=== PATIENT | female | born 1945 | race Caucasian/White ===

== ENCOUNTER 2017-08-14 14:24 | Inpatient (IN) | payer MEDICARE ==
[~2017-08-14] VITALS: Ht 170.2 cm; Wt 82.1 kg
[2017-08-14] MEDS ORDERED: ZOLP10TA6 PO (14:40)
[2017-08-14] MEDS ORDERED: METF10002 PO (14:40)
[2017-08-14] MEDS ORDERED: WARF10TA4 PO (14:40)
[2017-08-14] MEDS ORDERED: QUET50TA22 PO (14:42)
[2017-08-14] MEDS ORDERED: DIVA125T3 PO (14:42)
[2017-08-14] MEDS ORDERED: QUET25TA34 PO (14:42)
[2017-08-14] MEDS ORDERED: GLIP5TAB13 PO (14:44)
[2017-08-14] MEDS ORDERED: LISI2.5T2 PO (14:44)
[2017-08-14] MEDS ORDERED: DONE5TAB34 PO (14:44)
[2017-08-14] MEDS ORDERED: SERT25TA5 PO (14:45)
[2017-08-14] MEDS ORDERED: ATOR20TA PO (14:47)
[2017-08-14 15:05] LABS: *BILIRUBIN,URIN NEGATIVE (NEGATIVE); *BLOOD, URINE NEGATIVE (NEGATIVE); *CLARITY,URINE CLEAR (CLEAR); *COLOR,URINE YELLOW (YELLOW); *KETONES,URINE NEGATIVE (NEGATIVE); *PROTEIN,URINE NEGATIVE (NEGATIVE); *UROBILINOGEN,URINE 0.2 E.U./dl (NORMAL); LEUKOCYTE ESTERASE ,URINE TRACE (NEGATIVE); NITRITE, URINE NEGATIVE (NEGATIVE); PH,URINE 5.5 (5.0-8.0); UGLUCOSE NEGATIVE (NEGATIVE)
[2017-08-14 15:06] LABS: BASOPHILS % (AUTO) 0.8 % (0.0-2.0); EOSINOPHILS # (AUTO) 0.3 K/uL (0.0-0.7); EOSINOPHILS % (AUTO) 5.7 % (0.0-7.0); HEMATOCRIT 38.4 % (37-47); HEMOGLOBIN 12.7 G/DL (12.0-16.0); LYMPHOCYTES # (AUTO) 1.4 K/UL (0.8-4.8); LYMPHOCYTES % (AUTO) 26.1 % (20.5-51.5); MEAN CORPUSCULAR HEMOGLOBIN 30.4 UUG (27.0-31.0); MEAN CORPUSCULAR HGB CONC 33 g/dL (32.0-37.0); MEAN CORPUSCULAR VOLUME 92.1 FL (81.0-99.0); MONOCYTES # (AUTO) 0.5 K/UL (0.1-1.30); NEUTROPHILS # (AUTO) 3.1 K/UL (1.8-8.9); NEUTROPHILS % (AUTO) 57.4 % (38.5-71.5); PLATELET COUNT (AUTO) 206 K/UL (150-450); RED BLOOD CELL COUNT(AUTO) 4.17 MIL/UL (4.2-5.4); WHITE BLOOD COUNT (AUTO) 5.4 K/UL (4.0-11.2)
[2017-08-14 15:08] LABS: CARBON DIOXIDE 26 mmol/L (21-32); CHLORIDE 105 mmol/L (98-107); GLUCOSE 115 mg/dL (74-106); POTASSIUM 4.2 mmol/L (3.5-5.1); UREA NITROGEN, BLOOD 21 mg/dL (7-18)
[2017-08-14 15:14] LABS: SQUAMOUS EPITHELIAL CELL,UR FEW /HPF (NONE SEEN)
[2017-08-14 15:15] LABS: ALANINE AMINOTRANSFERASE 23 U/L (14-59); ALKALINE PHOSPHATASE 78 U/L (50-136); ASPARTATE AMINOTRANSFERASE 9 U/L (15-37); BILIRUBIN,DIRECT 0.1 mg/dL (0.0-0.2); BILIRUBIN,TOTAL 0.4 mg/dL (0.2-1.0); TOTAL PROTEIN, SERUM 6.9 g/dL (6.4-8.2)
[2017-08-14 15:17] LABS: ACETAMINOPHEN < 2.0 ug/mL (10-30)
--- NOTE | 2017-08-14 15:30 | NUR ---
hospital cranberry juice provided per pt ter request.
[2017-08-14 15:55] LABS: ETHANOL < 3 MG/DL (0-0)
[2017-08-14 15:57] LABS: *AMPHETAMINE, URINE NEGATIVE (NEGATIVE); *BARBITURATE, URINE NEGATIVE (NEGATIVE); *CANNABINOID, URINE NEGATIVE (NEGATIVE); *COCCAINE, URINE NEGATIVE (NEGATIVE); *OPIATE, URINE NEGATIVE (NEGATIVE); *PHENCYCLIDINE SCREEN,URINE NEGATIVE (NEGATIVE)
--- NOTE | 2017-08-14 16:01 | NUR ---
iza chaidez at bedside for psych eval.
[2017-08-14 16:30] VITALS: BP 138/79
--- NOTE | 2017-08-14 16:34 | NUR ---
pt transfered to [facility] in stable condition
--- NOTE | 2017-08-14 16:35 | NUR ---
GPS: Nursing Notes: Admission Notes: Patient is awake and responding to her name, admitted on [address] due striking out to roommates and staff, forgetful, disoriented, impaired judgment, unable to formulate a plan for self care, stated, "I am here because my mind is not working right..", depressed mood and blunted affect, flat, withdrawn in her room, came from [facility] , spoke with Farrah, network security administrator, stated that patient also did not sleep for several days and that she wanders at night, also that she has history of dementia, per Farrah, facility practice specialist stated that no pneumonia or flue vaccinations were given at the patient at her facility, JOHNATHON Ibrahim was notify that the patient is admitted to [facility].
[2017-08-14] MEDS ORDERED: ACETAMINOPHEN 325 MG TABLET PO PRN (17:00)
[2017-08-14] MEDS ORDERED: MAG HYDROX/AL HYDROX/SIMETH 30 ML LIQUID UDC PO PRN (17:00)
[2017-08-14] MEDS ORDERED: MAGNESIUM HYDROXIDE 30 ML LIQUID UDC PO PRN (17:00)
[2017-08-14] MEDS ORDERED: LORAZEPAM 0.5 MG TABLET PO PRN (17:00)
[2017-08-14] MEDS ORDERED: ZOLPIDEM 5 MG TABLET PO PRN (17:30)
[2017-08-14] MEDS: METFORMIN HCL 500 MG TABLET PO SCH (17:45)
[2017-08-14 19:50] VITALS: BP 124/74
[2017-08-14] MEDS: ATORVASTATIN 20 MG TABLET PO SCH (20:30)
[2017-08-15] MEDS: TEMAZEPAM 7.5 MG CAPSULE PO PRN ×2 (00:08→23:43)
[2017-08-15 07:10] LABS: BASOPHILS % (AUTO) 0.2 % (0.0-2.0); EOSINOPHILS # (AUTO) 0.4 K/uL (0.0-0.7); EOSINOPHILS % (AUTO) 5.9 % (0.0-7.0); HEMATOCRIT 36.6 % (37-47); HEMOGLOBIN 12.3 G/DL (12.0-16.0); LYMPHOCYTES # (AUTO) 2.2 K/UL (0.8-4.8); LYMPHOCYTES % (AUTO) 34.2 % (20.5-51.5); MEAN CORPUSCULAR HEMOGLOBIN 31.3 UUG (27.0-31.0); MEAN CORPUSCULAR HGB CONC 34 g/dL (32.0-37.0); MEAN CORPUSCULAR VOLUME 92.7 FL (81.0-99.0); MONOCYTES # (AUTO) 0.6 K/UL (0.1-1.30); MONOCYTES % (AUTO) 9.4 % (0.0-11.0); NEUTROPHILS # (AUTO) 3.1 K/UL (1.8-8.9); NEUTROPHILS % (AUTO) 50.3 % (38.5-71.5); PLATELET COUNT (AUTO) 194 K/UL (150-450); RED BLOOD CELL COUNT(AUTO) 3.95 MIL/UL (4.2-5.4); WHITE BLOOD COUNT (AUTO) 6.3 K/UL (4.0-11.2)
[2017-08-15 07:12] LABS: CARBON DIOXIDE 28 mmol/L (21-32); CHLORIDE 106 mmol/L (98-107); GLUCOSE 104 mg/dL (74-106); POTASSIUM 4.4 mmol/L (3.5-5.1); UREA NITROGEN, BLOOD 24 mg/dL (7-18)
[2017-08-15 07:30] VITALS: BP 133/72
[2017-08-15] MEDS: glipiZIDE 5 MG TABLET PO SCH (08:05)
[2017-08-15] MEDS: METFORMIN HCL 500 MG TABLET PO SCH ×2 (08:05→17:02)
[2017-08-15] MEDS: LISINOPRIL 5 MG TABLET PO SCH (08:06)
[2017-08-15] MEDS ORDERED: Medication Not On Formulary EA (Metformin Hcl 1,000 MG) PO SCH (09:00)
[2017-08-15] MEDS ORDERED: DIVALPROEX 125 MG TABLET.DR PO SCH (09:00)
[2017-08-15] MEDS ORDERED: WARFARIN SODIUM 10 MG TABLET PO SCH (09:00)
[2017-08-15 15:52] VITALS: BP 148/66
[2017-08-15] MEDS: DIVALPROEX 250 MG TABLET.DR PO SCH ×2 (16:13→20:33)
[2017-08-15] MEDS: QUETIAPINE FUMARATE 25 MG TABLET PO SCH ×2 (16:13→20:29)
[2017-08-15] MEDS: WARFARIN SODIUM 10 MG TABLET PO SCH (16:14)
[2017-08-15] MEDS: ATORVASTATIN 20 MG TABLET PO SCH (20:29)
[2017-08-15 20:36] VITALS: BP 136/71
--- NOTE | 2017-08-15 23:50 | NUR ---
PATIENT WAS NOTED UP SITTING IN A NEIL CHAIR, AWAKE AND RESTLESS. TEMAZEPAM 7.5MG PO PRN FOR INSOMNIA WAS GIVEN. WILL CONTINUE TO MONITOR.
--- NOTE | 2017-08-16 01:30 | NUR ---
PATIENT IN BED ASLEEP. TEMAZEPAM 7.5MG PO PRN FOR INSOMNIA WAS EFFECTIVE.
--- NOTE | 2017-08-16 06:54 | NUR ---
PATIENT SLEPT FOR APPROX 4 HRS THROUGH THE NIGHT. SHE WAS NOTED WITH DEPRESSED MOOD.
[2017-08-16 07:30] VITALS: BP 121/69
[2017-08-16] MEDS: METFORMIN HCL 500 MG TABLET PO SCH ×2 (07:39→17:02)
[2017-08-16] MEDS: glipiZIDE 5 MG TABLET PO SCH (07:39)
[2017-08-16] MEDS: QUETIAPINE FUMARATE 25 MG TABLET PO SCH ×3 (10:23→20:23)
[2017-08-16] MEDS: DIVALPROEX 250 MG TABLET.DR PO SCH ×3 (10:23→20:22)
[2017-08-16] MEDS: SERTRALINE HCL 50 MG TABLET PO SCH (10:24)
[2017-08-16] MEDS: LISINOPRIL 5 MG TABLET PO SCH (10:24)
[2017-08-16 15:00] VITALS: BP 132/60
[2017-08-16] MEDS: WARFARIN SODIUM 10 MG TABLET PO SCH (16:33)
[2017-08-16] MEDS ORDERED: WARFARIN SODIUM 5 MG TABLET PO ONE (17:00)
--- NOTE | 2017-08-16 17:00 | NUR ---
PATIENT MEDICATED WITH COUMADIN ORDERED WITH INR 1.65 WILL CONTINUE TO MONITOR
[2017-08-16] MEDS: ATORVASTATIN 20 MG TABLET PO SCH (20:23)
[2017-08-16 20:39] VITALS: BP 128/60
--- NOTE | 2017-08-17 06:20 | NUR ---
GPS: REMAIN CALM AND COOPERATIVE WITH MEDICATION AND CARE. SLEPT 7 HRS THROUGH THE NIGHT. SHOWERED THIS MORNING. NO BEHAVIOR PROBLEM NOTED.
[2017-08-17 07:30] VITALS: BP 127/70
[2017-08-17] MEDS: QUETIAPINE FUMARATE 25 MG TABLET PO SCH ×3 (08:04→20:05)
[2017-08-17] MEDS: SERTRALINE HCL 50 MG TABLET PO SCH (08:05)
[2017-08-17] MEDS: glipiZIDE 5 MG TABLET PO SCH (08:05)
[2017-08-17] MEDS: METFORMIN HCL 500 MG TABLET PO SCH ×2 (08:05→17:58)
[2017-08-17] MEDS: LISINOPRIL 5 MG TABLET PO SCH (08:05)
[2017-08-17] MEDS: DIVALPROEX 250 MG TABLET.DR PO SCH ×3 (08:05→20:05)
--- NOTE | 2017-08-17 08:23 | NUR ---
Initial Discharge Instructions: Pt resides at [facility] [[address] [place] [address]; [phone]] and wishes to return there upon discharge. Spoke with pt's friend/DPOA Baylee Tejeda , who would also like the pt to return to her [facility] upon discharge. Spoke with Farrah ([phone]) at the facility who is willing to accept pt back when ready for discharge. SW will speak with pt, family, and MD regarding appropriate discharge plans. SW will form a safe and proper discharge.
[2017-08-17] MEDS ORDERED: PNEUMOCOCCAL 23-VAL P-SAC VAC 0.5 ML VIAL IM ONE (13:00)
[2017-08-17] MEDS ORDERED: INFLUENZA VACCINE 2017-2018 0.5 ML DISP.SYRIN IM ONE (13:00)
[2017-08-17 15:00] VITALS: BP 112/67
[2017-08-17] MEDS ORDERED: WARFARIN SODIUM 5 MG TABLET PO ONE (17:00)
[2017-08-17] MEDS: WARFARIN SODIUM 10 MG TABLET PO SCH (18:01)
[2017-08-17 19:50] VITALS: BP 104/64
[2017-08-17] MEDS: ATORVASTATIN 20 MG TABLET PO SCH (20:06)
[2017-08-18] MEDS: glipiZIDE 5 MG TABLET PO SCH (07:26)
[2017-08-18 07:30] VITALS: BP 104/56
[2017-08-18] MEDS: DIVALPROEX 250 MG TABLET.DR PO SCH ×3 (08:04→21:44)
[2017-08-18] MEDS: METFORMIN HCL 500 MG TABLET PO SCH ×2 (08:04→17:50)
[2017-08-18] MEDS: SERTRALINE HCL 50 MG TABLET PO SCH (08:04)
[2017-08-18] MEDS: QUETIAPINE FUMARATE 25 MG TABLET PO SCH ×3 (08:04→21:44)
[2017-08-18] MEDS: LISINOPRIL 5 MG TABLET PO SCH (08:06)
[2017-08-18 16:25] VITALS: BP 111/57
[2017-08-18] MEDS: WARFARIN SODIUM 10 MG TABLET PO SCH (17:53)
[2017-08-18 20:06] VITALS: BP 146/87
[2017-08-18] MEDS: ATORVASTATIN 20 MG TABLET PO SCH (21:44)
--- NOTE | 2017-08-19 04:24 | NUR ---
GPS/NSG Patient first observed awake in room sitting on the bed with a disheveled appearance, unkempt, confused, disorganized, requiring redirection at times. Compliant with medication, continue to monitor for safety.
[2017-08-19] MEDS: glipiZIDE 5 MG TABLET PO SCH (08:29)
[2017-08-19] MEDS: LISINOPRIL 5 MG TABLET PO SCH (08:30)
[2017-08-19] MEDS: METFORMIN HCL 500 MG TABLET PO SCH ×2 (08:30→17:29)
[2017-08-19] MEDS: QUETIAPINE FUMARATE 25 MG TABLET PO SCH ×3 (08:31→20:40)
[2017-08-19] MEDS: SERTRALINE HCL 50 MG TABLET PO SCH (08:31)
[2017-08-19] MEDS: DIVALPROEX 250 MG TABLET.DR PO SCH ×3 (08:31→20:40)
[2017-08-19 16:37] VITALS: BP 122/72
[2017-08-19] MEDS: WARFARIN SODIUM 10 MG TABLET PO SCH (17:00)
[2017-08-19 19:47] VITALS: BP 125/79
[2017-08-19] MEDS: ATORVASTATIN 20 MG TABLET PO SCH (20:41)
--- NOTE | 2017-08-20 06:44 | NUR ---
GPS: REMAIN CALM AND COOPERATIVE.SLEPT 6 HRS THROUGH THE NIGHT.ASSISTED WITH ADL'S.CONTINUE MONITORING FOR SAFETY.
[2017-08-20 07:30] VITALS: BP 128/69
[2017-08-20] MEDS: SERTRALINE HCL 50 MG TABLET PO SCH (08:59)
[2017-08-20] MEDS: DIVALPROEX 250 MG TABLET.DR PO SCH ×3 (08:59→20:20)
[2017-08-20] MEDS: QUETIAPINE FUMARATE 25 MG TABLET PO SCH ×3 (08:59→20:20)
[2017-08-20] MEDS: METFORMIN HCL 500 MG TABLET PO SCH ×2 (09:00→17:06)
[2017-08-20] MEDS: LISINOPRIL 5 MG TABLET PO SCH (09:00)
[2017-08-20] MEDS: glipiZIDE 5 MG TABLET PO SCH (09:01)
[2017-08-20 16:30] VITALS: BP 124/71
[2017-08-20] MEDS ORDERED: WARFARIN SODIUM 7.5 MG TABLET PO SCH (17:00)
[2017-08-20] MEDS: ATORVASTATIN 20 MG TABLET PO SCH (20:21)
[2017-08-20 21:05] VITALS: BP 124/66
[2017-08-21] MEDS: TEMAZEPAM 7.5 MG CAPSULE PO PRN (00:18)
[2017-08-21 07:30] VITALS: BP 126/68
[2017-08-21] MEDS: QUETIAPINE FUMARATE 25 MG TABLET PO SCH ×3 (08:01→20:05)
[2017-08-21] MEDS: METFORMIN HCL 500 MG TABLET PO SCH ×2 (08:01→17:04)
[2017-08-21] MEDS: DIVALPROEX 250 MG TABLET.DR PO SCH ×3 (08:01→20:05)
[2017-08-21] MEDS: glipiZIDE 5 MG TABLET PO SCH (08:01)
[2017-08-21] MEDS: SERTRALINE HCL 50 MG TABLET PO SCH (08:02)
[2017-08-21] MEDS: LISINOPRIL 5 MG TABLET PO SCH (08:02)
[2017-08-21 15:55] VITALS: BP 127/68
[2017-08-21] MEDS: BLOOD SUGAR DIAGNOSTIC 1 EACH STRIP VI SCH (16:31)
[2017-08-21] MEDS: WARFARIN SODIUM 10 MG TABLET PO SCH (16:45)
[2017-08-21 19:51] VITALS: BP 110/70
[2017-08-21] MEDS: ATORVASTATIN 20 MG TABLET PO SCH (20:05)
--- NOTE | 2017-08-22 05:56 | NUR ---
patient slept for approx 6 hrs through the night. No PRN given during the shift. She remains calm and cooperative with plan of care. However, she is noted confused at times.
[2017-08-22 07:30] VITALS: BP 110/67
[2017-08-22] MEDS: BLOOD SUGAR DIAGNOSTIC 1 EACH STRIP VI SCH ×2 (07:33→16:30)
[2017-08-22 08:08] LABS: BASOPHILS % (AUTO) 0.8 % (0.0-2.0); EOSINOPHILS # (AUTO) 0.3 K/uL (0.0-0.7); EOSINOPHILS % (AUTO) 4.7 % (0.0-7.0); HEMATOCRIT 35.7 % (31.2-41.9); HEMOGLOBIN 12.4 g/dL (10.9-14.3); LYMPHOCYTES # (AUTO) 1.6 K/uL (20.0-40.0); LYMPHOCYTES % (AUTO) 29.3 % (20.5-51.5); MEAN CORPUSCULAR HEMOGLOBIN 31.6 uug (24.7-32.8); MEAN CORPUSCULAR HGB CONC 35 g/dL (32.3-35.6); MEAN CORPUSCULAR VOLUME 91.2 fL (75.5-95.3); MONOCYTES # (AUTO) 0.5 K/uL (2.0-10.0); MONOCYTES % (AUTO) 9.3 % (0.0-11.0); NEUTROPHILS # (AUTO) 3.1 K/uL (1.8-8.9); NEUTROPHILS % (AUTO) 55.9 % (38.5-71.5); PLATELET COUNT (AUTO) 187 K/uL (179-408); RED BLOOD CELL COUNT(AUTO) 3.92 MIL/uL (3.63-4.92); WHITE BLOOD COUNT (AUTO) 5.5 K/uL (3.8-11.8)
[2017-08-22] MEDS: glipiZIDE 5 MG TABLET PO SCH (08:12)
[2017-08-22] MEDS: METFORMIN HCL 500 MG TABLET PO SCH ×2 (08:12→17:17)
[2017-08-22] MEDS: DIVALPROEX 250 MG TABLET.DR PO SCH ×3 (08:16→20:04)
[2017-08-22] MEDS: QUETIAPINE FUMARATE 25 MG TABLET PO SCH ×3 (08:16→20:04)
[2017-08-22] MEDS: LISINOPRIL 5 MG TABLET PO SCH (08:16)
[2017-08-22] MEDS: SERTRALINE HCL 50 MG TABLET PO SCH (08:16)
[2017-08-22 09:40] LABS: ALANINE AMINOTRANSFERASE 17 U/L (14-59); ALKALINE PHOSPHATASE 69 U/L (50-136); ASPARTATE AMINOTRANSFERASE 7 U/L (15-37); BILIRUBIN,TOTAL 0.4 mg/dL (0.2-1.0); CARBON DIOXIDE 24 mmol/L (21-32); CHLORIDE 108 mmol/L (98-107); GLUCOSE 111 mg/dL (74-106); MAGNESIUM 1.8 mg/dL (1.8-2.4); PHOSPHOROUS 3.8 mg/dL (2.5-4.9); POTASSIUM 4.4 mmol/L (3.5-5.1); TOTAL PROTEIN, SERUM 6.2 g/dL (6.4-8.2); UREA NITROGEN, BLOOD 35 mg/dL (7-18)
[2017-08-22 11:14] LABS: THYROID STIMULATING HORMONE 1.434 mIU/mL (0.358-3.740)
[2017-08-22 16:00] VITALS: BP 120/63
[2017-08-22] MEDS: WARFARIN SODIUM 10 MG TABLET PO SCH (17:38)
[2017-08-22] MEDS: ATORVASTATIN 20 MG TABLET PO SCH (20:03)
[2017-08-22 20:07] VITALS: BP 106/64
[2017-08-23] MEDS: TEMAZEPAM 7.5 MG CAPSULE PO PRN (00:12)
[2017-08-23 07:30] VITALS: BP 142/72
[2017-08-23] MEDS: glipiZIDE 5 MG TABLET PO SCH (07:55)
[2017-08-23] MEDS: METFORMIN HCL 500 MG TABLET PO SCH (07:56)
[2017-08-23] MEDS: BLOOD SUGAR DIAGNOSTIC 1 EACH STRIP VI SCH (07:56)
[2017-08-23] MEDS: QUETIAPINE FUMARATE 25 MG TABLET PO SCH (08:00)
[2017-08-23] MEDS: DIVALPROEX 250 MG TABLET.DR PO SCH (08:00)
[2017-08-23] MEDS: SERTRALINE HCL 50 MG TABLET PO SCH (08:00)
[2017-08-23 08:03] VITALS: BP 142/72
[2017-08-23] MEDS: LISINOPRIL 5 MG TABLET PO SCH (08:03)
--- NOTE | 2017-08-23 09:39 | NUR ---
DC Note: Patient will be discharged to [facility] [[address] [place] [address]; ] via [facility] at 1:00pm. Spoke with Farrah at the facility who states they are ready to accept patient today. Spoke with patient's DPOA, Baylee Tejeda who is aware and agreeable with discharge plans. Patient is aware and agreeable with discharge plans. Patient will follow-up Dr. Duque ([facility]) at [facility] [[address] [place] [address]; [phone]] and was given outpatient psych referrals for Dr. May ; Dr. Hensley ; and Dr. Gutierrez (Psychiatrists).
--- NOTE | 2017-08-23 10:48 | NUR ---
PSYCH RX: CALLED IN PSYCH RX (DEPMAURICIO, [place]OM[place], [facility]) TO [facility] [phone]. SPOKE WITH PHARMACIST JJ WHO CONFIRMED THAT [facility]YLA IS A PT THERE AND TOOK THE NEW RX ORDER.
--- NOTE | 2017-08-23 14:22 | NUR ---
DISCHARGED PATIENT VIA [facility]. BELONGINGS AND DISCHARGE INSTRUCTIONS GIVEN. DENIES HOMICIDAL/SUICIDAL THOUGHTS.
== END 2017-08-23 14:30 | DRG 885 ==
LOC: ER 14:24 → GPS 16:28
PROVIDERS: ADMIT Psychiatry & Neurology Psychiatry; ATTEND Family Medicine
DX: F39 Unspecified mood [affective] disorder (principal); E11.65 Type 2 diabetes mellitus with hyperglycemia; D68.59 Other primary thrombophilia; E88.09 Other disorders of plasma-protein metabolism, not elsewhere classified; F03.91 Unspecified dementia, unspecified severity, with behavioral disturbance; I48.91 Unspecified atrial fibrillation; E78.5 Hyperlipidemia, unspecified; F41.8 Other specified anxiety disorders; Z79.899 Other long term (current) drug therapy; Z79.84 Long term (current) use of oral hypoglycemic drugs; Z79.01 Long term (current) use of anticoagulants; I10 Essential (primary) hypertension; E66.3 Overweight; Z68.28 Body mass index [BMI] 28.0-28.9, adult
CPT/HCPCS: 36415; 70450; 80307; 83735; 84100; 84443; 85025; 85610; 90686; 90732; 97116; 97530; A4663; G0480; G0480-TC; J3490